=== PATIENT | male | born 1990 | race Caucasian/White ===

== ENCOUNTER 2022-08-28 08:18 | Emergency (ER) | payer MEDICAID, OTHER ==
[~2022-08-28] VITALS: Ht 170.1 cm; Wt 65.7 kg
--- NOTE | 2022-08-28 08:54 | ED Cough/URI ---
General Chief Complaint: Cough/Cold/Flu Symptoms Stated Complaint: VOMITING/RASH ON BODY/SINUS CONGESTION Source: patient Exam Limitations: no limitations History of Present Illness Date Seen by Provider: Aug 28, 2022 Time Seen by Provider: 08:40 Initial Comments Patient is a 31-year-old male who presents to the emergency department with a chief complaint of upper respiratory symptoms for about a week. He started having an itchy red raised rash 2 or 3 days ago. He has been taking mgos-hir-lptvujw cold medications but they are not helping. He had 1 episode of nausea and vomiting 24 hours ago. No diarrhea, no problems with urination. He states the rash extends down into his groin. Mild headache. No pain. No earache, sore throat. Feels a little short of breath. Is not COVID vaccinated. Has not taken anything for the rash. All other review of systems reviewed and negative except as stated. Timing/Duration: week Severity/Quality: moderate Prior Episodes/Possible Cause: occasional episodes Associated Symptoms: cough, nasal congestion, shortness of breath, other (v/v/rash) Allergies and Home Medications Allergies Coded Allergies: No Known Drug Allergies (Unverified , 08/28/22) Patient Home Medication List Home Medication List Reviewed: Yes Review of Systems Review of Systems Constitutional: see HPI EENTM: no symptoms reported, nose congestion Respiratory: cough, short of breath Cardiovascular: no symptoms reported Gastrointestinal: nausea, vomiting Genitourinary: no symptoms reported Musculoskeletal: no symptoms reported Skin: pruritus, rash Psychiatric/Neurological: No Symptoms Reported All Other Systems Reviewed Negative Unless Noted: Yes Past Gmlafan-Jgnmqh-Fvjcha Hx Patient Social History Tobacco Use?: No Use of E-Cig and/or Vaping dev: No Substance use?: No Alcohol Use?: No Pt feels they are or have been: No Immunizations Up To Date Influenza Vaccine Up-to-Date: No; Not Current Physical Exam Vital Signs - First Documented 08/28/22 08:38 Temp 37.6 Pulse 81 Resp 18 B/P (MAP) 128/86 (100) Pulse Ox 98 O2 Delivery Room Air Capillary Refill : Height: '" Weight: lbs. oz. kg; BMI Method: General Appearance: WD/WN, no apparent distress, thin Eyes: Bilateral Eye Normal Inspection, Bilateral Eye PERRL, Bilateral Eye EOMI HEENT: normal ENT inspection, TMs normal, pharynx normal Neck: full range of motion, supple, normal inspection Respiratory: lungs clear, normal breath sounds, no respiratory distress, no accessory muscle use Cardiovascular: regular rate, rhythm Gastrointestinal: normal bowel sounds, non tender, soft Extremities: normal range of motion, non-tender, normal inspection, no pedal edema, normal capillary refill Neurologic/Psychiatric: alert, normal mood/affect, oriented x 3 Skin: normal color, warm/dry, rash (diffuse hive-like maculopapular rash to upper extremities and lower abdomen. patient complains of pruritis. some crusted lesions to the dorsum of the left wrist from scratching) Progress/Results/Core Measures Suspected Sepsis SIRS Temperature: Pulse: Respiratory Rate: Blood Pressure / Mean: Results/Orders Lab Results Laboratory Tests Test 08/28/22 08:45 Range/Units Influenza Type A (RT-PCR) Not Detected Not Detecte Influenza Type B (RT-PCR) Not Detected Not Detecte SARS-CoV-2 RNA (RT-PCR) Detected H Not Detecte My Orders Orders - CÉSAR MCKEON MD Covid 19 Inhouse Test (08/28/22 08:48) Influenza A And B By Pcr (08/28/22 08:48) Isolation Central Supply Req (08/28/22 08:48) Diphenhydramine Tablet (Benadryl Tablet) (08/28/22 09:00) Famotidine Tablet (Pepcid Tablet) (08/28/22 09:00) Prednisone Tablet (Deltasone Tablet) (08/28/22 09:00) Acetaminophen Tablet (Tylenol Tablet) (08/28/22 09:15) Medications Given in ED Current Medications Medications Dose Ordered Sig/Stacia Route Start Time Stop Time Status Last Admin Dose Admin Acetaminophen 1,000 mg ONCE ONCE PO 08/28/22 09:15 08/28/22 09:16 DC 08/28/22 09:19 1,000 MG Diphenhydramine HCl 50 mg ONCE ONCE PO 08/28/22 09:00 08/28/22 09:01 DC 08/28/22 09:17 50 MG Famotidine 20 mg ONCE ONCE PO 08/28/22 09:00 08/28/22 09:01 DC 08/28/22 09:17 20 MG Prednisone 50 mg ONCE ONCE PO 08/28/22 09:00 08/28/22 09:01 DC 08/28/22 09:17 50 MG Vital Signs/I&O 08/28/22 08:38 Temp 37.6 Pulse 81 Resp 18 B/P (MAP) 128/86 (100) Pulse Ox 98 O2 Delivery Room Air Capillary Refill : Progress Note : Time: 09:40 Progress Note Patient seen and evaluated 31-year-old with URI symptoms, fever, headache shortness of breath and rash. He is COVID-positive today. He is outside the window for medication such as Paxlovid or monoclonal antibody. Vital signs are stable, no clinical concerns for sepsis. Chest x-ray considered however history and physical exam do not support the need. Patient is treated with oral prednisone, Benadryl and Pepcid. He will be sent home with prescription for prednisone for the next 4 days. Counseled on return precautions. All questions are sought and answered. Departure Impression Primary Impression: COVID-19 Additional Impression: Contact dermatitis Qualified Codes: L25.9 - Unspecified contact dermatitis, unspecified cause Disposition: HOME, SELF-CARE Condition: Improved Departure-Patient Inst. Decision time for Depature: 10:19 Referrals: [facility] [place],LOCAL PHYSICIAN (PCP) Primary Care Physician Patient Instructions: COVID-19 (DC) Add. Discharge Instructions: Drink plenty of fluids to stay well-hydrated. Take shyz-onh-tilrtwq extra strength Tylenol 2 tablets every 6 hours as needed for body aches, fever over 100.4. You can also take iaih-wcf-rblxmgo ibuprofen 3 tablets which is 600 mg with food every 6 hours for body aches, headache and fever. Iavy-hac-xdrwirf cold medication such as DayQuil or NyQuil for congestion and cough. Take the prednisone 50 mg starting tomorrow for the next 4 days Monday through . Generic Benadryl 1 to 2 tablets as needed every 6 hours for itching on Pepcid 20 mg twice daily as long as you are taking the steroids. Come back to the emergency department for reevaluation if you develop any new, concerning or emergent complaints. Scripts Prednisone (Prednisone) 50 Mg Tab 50 MG PO DAILY for 4 Days, #4 TAB Prov: CÉSAR MCKEON MD 08/28/22 Work/School Note: Work Release Form Date Seen in the Emergency Department: Aug 28, 2022 Return to Work: Aug 30, 2022 CÉSAR MCKEON MD Aug 28, 2022 08:54
[2022-08-28] MEDS ORDERED: diphenhydrAMINE 25 MG TAB (BENADRYL) PO ONE (09:00)
[2022-08-28] MEDS ORDERED: predniSONE 20 MG TAB PO ONE (09:00)
[2022-08-28] MEDS ORDERED: FAMOTIDINE 20 MG (PEPCID) TABLET PO ONE (09:00)
[2022-08-28] MEDS ORDERED: ACETAMINOPHEN 500 MG TAB (TYLENOL) PO ONE (09:15)
[2022-08-28] MEDS ORDERED: PRD50T PO (10:22)
[2022-08-28 10:36] VITALS: BP 117/79
== END 2022-08-28 10:37 | disposition home or self-care (01) ==
LOC: ER 08:23
DX: U07.1 COVID-19 (principal); R05.9 Cough, unspecified; R09.81 Nasal congestion; R06.02 Shortness of breath; R11.2 Nausea with vomiting, unspecified; R51.9 Headache, unspecified; L25.9 Unspecified contact dermatitis, unspecified cause; Z28.310 Unvaccinated for COVID-19
CPT/HCPCS: 87636; 99283